=== PATIENT | male | born 1945 | race Caucasian/White ===

== ENCOUNTER 2019-11-11 19:45 | Inpatient (IN) ==
[2019-11-11 20:20] LABS: Basophils # 0.1 10*3/uL (0.0-0.2); Eosinophils % 14.9 % (0.00-10.9); Hematocrit 30.6 VOL% (42.0-52.0); Hemoglobin 9.2 GM/DL (14.0-18.0); Immature Granulocytes % 0.4 %; Immature Granulocytes Absolute 0.06 #; Lymphocytes # 2.4 10*3/uL (1.4-4.0); Lymphocytes % 17.2 % (21.2-54.2); Mean Corpuscular HGB Conc 30.1 GM/DL (32-36); Mean Corpuscular Volume 104.4 FL (87-102); Mean Platelet Volume 10.6 FL (9.6-12.0); Monocytes % 7.3 % (1.7-12.7); Neutrophils % 59.2 % (38.7-73.9); Platelet Count 387 T/CUMM (130-400); Red Blood Count 2.93 MC/CUMM (3.8-5.5); Red Cell Distribution Width 14.8 % (9.3-17.3); White Blood Count 13.7 T/CUMM (4-12)
[2019-11-11 20:43] LABS: Alanine Aminotransferase 27 U/L (16-61); Albumin 3.4 G/DL (3.4-5.0); Alkaline Phosphatase 154 U/L (45-117); Aspartate Amino Transferase 27 U/L (0-37); Bilirubin,Total < 0.39 MG/DL (0.2-1.0); Blood Urea Nitrogen 58 MG/DL (7-18); Calcium 7.9 MG/DL (8.5-10.1); Estimated Glom Filtration Rate 0 ML/MIN; Ferritin 66.5 ng/ml (26-388); Glucose 285 MG/DL (74-106); Osmolality,Calculated 295.1 MOS/KG (273-304); Total Protein 7.6 G/DL (6.4-8.3)
[2019-11-11] MEDS ORDERED: LEVOFLOXACIN INJ 750 MG in PREMIX 1 EACH IV STA (20:45)
[2019-11-11] MEDS ORDERED: VANCOMYCIN INJ 1,000 MG in SODIUM CHLORIDE 0.9% 250 ML IV STA (20:45)
[2019-11-11] MEDS ORDERED: DEXTROSE 50% 25 GM/50 ML VIAL IV STA (20:48)
[2019-11-11] MEDS ORDERED: CALCIUM CHLORIDE 1,000 MG/10 ML SYRINGE IV STA (20:48)
[2019-11-11] MEDS ORDERED: INSULIN REGULAR 100 UNIT/ML IV STA (20:48)
[2019-11-11 20:50] LABS: Eosinophils 15 % (0-10); Lymphocytes 8 % (20-55); Segmented Neutrophils 75 % (50-85); Total Cells Counted 100
[2019-11-11 20:51] LABS: Anisocytosis 1+; Macrocytosis 1+; Microcytosis Slight; Platelet Estimate Normal; Polychromasia Slight
[2019-11-11 20:55] LABS: PT Patient Result 10.3 SECS (9.8-11.9); Partial Thromboplastin Time 31.4 SECS (23.9-33.8)
[2019-11-11] MEDS ORDERED: DEXTROSE 50% 25 GM/50 ML SYRINGE IV ONE (21:14)
[2019-11-11 21:59] LABS: ABG Base Excess -9.3 MMOL/L (-2.5-2.5); ABG HCO3 16.7 MMOL/L (20-26); ABG Oxygen Saturation 79.8 % (95-100); ABG PCO2 61.3 MM HG (35-48); ABG PO2 53.2 MM HG (80-95); ABG TCO2 19.6 MMOL/L (23-27)
[2019-11-11] MEDS: SODIUM BICARB INJ 50 MEQ in DEXTROSE 5% 1,000 ML IV SCH (22:46)
[2019-11-11 23:26] LABS: Apearance,Urine CLEAR (Clear); Bacteria,Urine Few /HPF (Few); Bilirubin,Urine Negative (Negative); Blood, Urine Small mg/dL (Negative); Glucose,Urine (UA) 50 mg/dL (Negative); Ketones,Urine Negative (Negative); Nitrite,Urine Negative (Negative); Protein,Urine 100 MG/DL; RBC,Urine 5 /HPF (0-4); Urine Color Yellow (Yellow); Urine Urobilinogen < 2.0 EU/DL (0.2-1.0)
[2019-11-12] MEDS ORDERED: LACTATED RINGERS 1,000 ML IV ONE (01:04)
[2019-11-12] MEDS ORDERED: fentaNYL INJ 1,250 MCG in SODIUM CHLORIDE 0.9% 225 ML IV PRN (01:04)
[2019-11-12] MEDS ORDERED: DEXTROSE 10% 250 ML BAG IV PRN (01:14)
[2019-11-12] MEDS ORDERED: SODIUM BICARBONATE 50 MEQ/50 ML VIAL IV ONE (01:30)
[2019-11-12] MEDS ORDERED: INSULIN REGULAR 100 UNIT/ML IV ONE (01:30)
[2019-11-12 01:32] LABS: ABG Base Excess -10.3 MMOL/L (-2.5-2.5); ABG HCO3 16.2 MMOL/L (20-26); ABG Oxygen Saturation 99.4 % (95-100); ABG PCO2 42.4 MM HG (35-48); ABG PH 7.213 (7.35-7.45); ABG TCO2 16.2 MMOL/L (23-27); Allen Test Positive; Pt O2 Delivery Device Ventilator
[2019-11-12] MEDS: SODIUM POLYSTYRENE SULFATE 15 GM/60 ML BOTTLE PO SCH ×2 (02:07→11:34)
[2019-11-12 03:26] LABS: Alanine Aminotransferase 20 U/L (16-61); Albumin 2.6 G/DL (3.4-5.0); Alkaline Phosphatase 120 U/L (45-117); Aspartate Amino Transferase 55 U/L (0-37); Bilirubin,Total < 0.39 MG/DL (0.2-1.0); Blood Urea Nitrogen 62 MG/DL (7-18); Calcium 8.3 MG/DL (8.5-10.1); Estimated Glom Filtration Rate 11 ML/MIN; Glucose 370 MG/DL (74-106); Total Protein 5.4 G/DL (6.4-8.3)
[2019-11-12 03:33] LABS: CKMB % 9.9 %
[2019-11-12] MEDS ORDERED: ETOMIDATE 20 MG/10 ML VIAL IV ONE (04:31)
[2019-11-12] MEDS ORDERED: ROCURONIUM 100 MG/10 ML VIAL IV ONE (04:31)
[2019-11-12 04:33] LABS: PT Patient Result 10.9 SECS (9.8-11.9); Partial Thromboplastin Time 29.2 SECS (23.9-33.8)
[2019-11-12 04:46] LABS: Basophils % 0.4 % (0.0-0.8); Eosinophils % 0.3 % (0.00-10.9); Hematocrit 26.1 VOL% (42.0-52.0); Hemoglobin 7.7 GM/DL (14.0-18.0); Immature Granulocytes % 0.4 %; Immature Granulocytes Absolute 0.03 #; Lymphocytes # 0.5 10*3/uL (1.4-4.0); Lymphocytes % 6.6 % (21.2-54.2); Mean Corpuscular HGB Conc 29.5 GM/DL (32-36); Mean Corpuscular Volume 104.4 FL (87-102); Mean Platelet Volume 11.3 FL (9.6-12.0); Monocytes % 8.9 % (1.7-12.7); Neutrophils % 83.4 % (38.7-73.9); Platelet Count 265 T/CUMM (130-400); Red Cell Distribution Width 14.6 % (9.3-17.3); White Blood Count 6.8 T/CUMM (4-12)
[2019-11-12] MEDS: INSULIN LISPRO 100 UNIT/ML SUBCUT SCH ×4 (09:08→18:03)
[2019-11-12] MEDS ORDERED: CALCIUM CHLORIDE 1,000 MG in SODIUM CHLORIDE 0.9% 100 ML IV ONE (11:00)
[2019-11-12] MEDS: LINEZOLID 600 MG TABLET PO SCH ×2 (11:33→20:08)
[2019-11-12] MEDS: PANTOPRAZOLE 40 MG TABLET PO SCH (11:34)
[2019-11-12] MEDS: ASPIRIN EC 81 MG TABLET PO SCH (11:34)
[2019-11-12] MEDS: METOPROLOL TARTRATE 100 MG TABLET PO SCH ×2 (11:34→22:48)
[2019-11-12] MEDS: CLOPIDOGREL 75 MG TABLET PO SCH (11:34)
[2019-11-12] MEDS: SODIUM BICARB INJ 50 MEQ in DEXTROSE 5% 1,000 ML IV SCH (13:08)
[2019-11-12 13:35] LABS: Albumin 2.7 G/DL (3.4-5.0); Bilirubin,Total 0.7 MG/DL (0.2-1.0); Calcium 8.2 MG/DL (8.5-10.1); Total Protein 5.9 G/DL (6.4-8.3)
[2019-11-12] MEDS: HEPARIN DRIP 25,000 UNITS/500 ML PREMIX IV SCH (13:58)
[2019-11-12] MEDS ORDERED: SODIUM POLYSTYRENE SULFATE 15 GM/60 ML BOTTLE PO PRN (14:12)
[2019-11-13 03:01] LABS: Basophils # 0.1 10*3/uL (0.0-0.2); Basophils % 0.7 % (0.0-0.8); Eosinophils # 0.4 10*3/uL (0.0-0.87); Eosinophils % 5.6 % (0.00-10.9); Hematocrit 25.7 VOL% (42.0-52.0); Hemoglobin 8.1 GM/DL (14.0-18.0); Immature Granulocytes % 0.4 %; Immature Granulocytes Absolute 0.03 #; Lymphocytes # 1.3 10*3/uL (1.4-4.0); Lymphocytes % 18.6 % (21.2-54.2); Mean Corpuscular HGB Conc 31.5 GM/DL (32-36); Mean Corpuscular Volume 98.8 FL (87-102); Mean Platelet Volume 10.8 FL (9.6-12.0); Monocytes % 11.1 % (1.7-12.7); Neutrophils % 63.6 % (38.7-73.9); Platelet Count 278 T/CUMM (130-400); Red Cell Distribution Width 14.6 % (9.3-17.3)
[2019-11-13 03:16] LABS: Albumin 2.5 G/DL (3.4-5.0); Bilirubin,Total 0.4 MG/DL (0.2-1.0); Osmolality,Calculated 289.4 MOS/KG (273-304)
[2019-11-13 03:20] LABS: Alanine Aminotransferase 20 U/L (16-61); Albumin 2.7 G/DL (3.4-5.0); Alkaline Phosphatase 115 U/L (45-117); Aspartate Amino Transferase 42 U/L (0-37); Bilirubin,Direct < 0.100 MG/DL (0.0-0.20); Bilirubin,Indirect 0.6 MG/DL (0.0-1.0); Ferritin 103.8 ng/ml (26-388); Total Protein 5.8 G/DL (6.4-8.3); Triglycerides 136 MG/DL (2-150)
[2019-11-13] MEDS: INSULIN LISPRO 100 UNIT/ML SUBCUT SCH ×4 (03:41→18:16)
[2019-11-13 04:04] LABS: ABG Base Excess -4.8 MMOL/L (-2.5-2.5); ABG HCO3 16.4 MMOL/L (20-26); ABG Oxygen Saturation 98.7 % (95-100); ABG PH 7.556 (7.35-7.45); ABG PO2 290.7 MM HG (80-95)
[2019-11-13 05:08] LABS: ABG PCO2 18.9 MM HG (35-48)
[2019-11-13 07:40] LABS: ABG Base Excess -4.7 MMOL/L (-2.5-2.5); ABG HCO3 20.5 MMOL/L (20-26); ABG Oxygen Saturation 99.5 % (95-100); ABG PCO2 22.1 MM HG (35-48); ABG PH 7.503 (7.35-7.45); ABG TCO2 16.1 MMOL/L (23-27)
[2019-11-13] MEDS: METOPROLOL TARTRATE 100 MG TABLET PO SCH ×2 (08:17→21:03)
[2019-11-13] MEDS: LINEZOLID 600 MG TABLET PO SCH ×2 (08:17→21:04)
[2019-11-13] MEDS: CLOPIDOGREL 75 MG TABLET PO SCH (08:17)
[2019-11-13] MEDS: PANTOPRAZOLE 40 MG TABLET PO SCH (08:17)
[2019-11-13] MEDS: ASPIRIN EC 81 MG TABLET PO SCH (08:17)
[2019-11-13] MEDS: LEVOFLOXACIN INJ 500 MG in PREMIX 1 EACH IV SCH (08:17)
[2019-11-13] MEDS ORDERED: SODIUM CHLORIDE 0.9% 1,000 ML IV PRN (09:36)
[2019-11-13] MEDS: HYDROXYCHLOROQUINE 200 MG TABLET PO SCH ×2 (10:19→21:04)
[2019-11-13 15:58] LABS: Albumin 2.3 G/DL (3.4-5.0); Bilirubin,Total 0.4 MG/DL (0.2-1.0); Calcium 7.8 MG/DL (8.5-10.1); Osmolality,Calculated 291.1 MOS/KG (273-304); Total Protein 5.7 G/DL (6.4-8.3)
[2019-11-13 20:38] LABS: Hematocrit 33.5 VOL% (42.0-52.0); Hemoglobin 10.8 GM/DL (14.0-18.0)
[2019-11-13] MEDS: HEPARIN DRIP 25,000 UNITS/500 ML PREMIX IV SCH (20:45)
[2019-11-13] MEDS: ROSUVASTATIN 20 MG TABLET PO SCH (21:03)
[2019-11-14] MEDS: INSULIN LISPRO 100 UNIT/ML SUBCUT SCH ×4 (00:45→18:10)
[2019-11-14 04:03] LABS: ABG Base Excess -4.3 MMOL/L (-2.5-2.5); ABG HCO3 20.9 MMOL/L (20-26); ABG PCO2 31.7 MM HG (35-48); ABG PH 7.399 (7.35-7.45); ABG TCO2 17.6 MMOL/L (23-27); Allen Test Positive; Pt O2 Delivery Device Ventilator
[2019-11-14 04:28] LABS: Basophils % 0.6 % (0.0-0.8); Eosinophils # 0.9 10*3/uL (0.0-0.87); Eosinophils % 13.5 % (0.00-10.9); Hematocrit 31.6 VOL% (42.0-52.0); Hemoglobin 10.1 GM/DL (14.0-18.0); Immature Granulocytes % 0.3 %; Immature Granulocytes Absolute 0.02 #; Lymphocytes # 0.8 10*3/uL (1.4-4.0); Lymphocytes % 12.2 % (21.2-54.2); Mean Corpuscular Volume 95.8 FL (87-102); Mean Platelet Volume 10.7 FL (9.6-12.0); Monocytes % 8.3 % (1.7-12.7); Neutrophils % 65.1 % (38.7-73.9); Platelet Count 250 T/CUMM (130-400); Red Cell Distribution Width 15.6 % (9.3-17.3); White Blood Count 6.7 T/CUMM (4-12)
[2019-11-14 05:10] LABS: PT Patient Result 10.4 SECS (9.8-11.9)
[2019-11-14 05:15] LABS: Albumin 2.4 G/DL (3.4-5.0); Bilirubin,Direct 0.19 MG/DL (0.0-0.20); Bilirubin,Indirect 0.3 MG/DL (0.0-1.0); Bilirubin,Total 0.5 MG/DL (0.2-1.0); Ferritin 189.7 ng/ml (26-388); Total Protein 5.2 G/DL (6.4-8.3)
[2019-11-14 05:20] LABS: Partial Thromboplastin Time 53.5 SECS (23.9-33.8)
[2019-11-14 05:22] LABS: Eosinophils 13 % (0-10); Lymphocytes 7 % (20-55); Platelet Estimate Normal; Polychromasia Few; Segmented Neutrophils 78 % (50-85); Total Cells Counted 100
[2019-11-14 07:03] LABS: Albumin 2.3 G/DL (3.4-5.0); Calcium 7.9 MG/DL (8.5-10.1)
[2019-11-14 07:04] LABS: Osmolality,Calculated 293.8 MOS/KG (273-304)
[2019-11-14 07:09] LABS: Bilirubin,Total 0.6 MG/DL (0.2-1.0); Total Protein 5.9 G/DL (6.4-8.3)
[2019-11-14] MEDS: ASPIRIN EC 81 MG TABLET PO SCH (08:49)
[2019-11-14] MEDS: METOPROLOL TARTRATE 100 MG TABLET PO SCH ×2 (08:49→21:00)
[2019-11-14] MEDS: CLOPIDOGREL 75 MG TABLET PO SCH (08:50)
[2019-11-14] MEDS: LINEZOLID 600 MG TABLET PO SCH ×2 (08:50→21:00)
[2019-11-14] MEDS: HYDROXYCHLOROQUINE 200 MG TABLET PO SCH ×2 (08:50→21:00)
[2019-11-14] MEDS: OMEPRAZOLE ODT 20 MG TABLET NG SCH (08:53)
[2019-11-14 10:46] LABS: CKMB % 1.2 %
[2019-11-14 10:49] LABS: Troponin I 6.21 NG/ML (0.00-0.045)
[2019-11-14] MEDS: amLODIPine 5 MG TABLET PO SCH (12:31)
[2019-11-14] MEDS: HEPARIN DRIP 25,000 UNITS/500 ML PREMIX IV SCH (18:10)
[2019-11-14] MEDS: ACETAMINOPHEN 325 MG TABLET PO PRN (21:00)
[2019-11-14] MEDS: ROSUVASTATIN 20 MG TABLET PO SCH (21:00)
[2019-11-15] MEDS: INSULIN LISPRO 100 UNIT/ML SUBCUT SCH ×5 (00:56→23:45)
[2019-11-15 03:26] LABS: Basophils % 0.4 % (0.0-0.8); Eosinophils # 0.3 10*3/uL (0.0-0.87); Eosinophils % 5.7 % (0.00-10.9); Hematocrit 29.5 VOL% (42.0-52.0); Hemoglobin 9.5 GM/DL (14.0-18.0); Immature Granulocytes % 0.4 %; Immature Granulocytes Absolute 0.02 #; Lymphocytes # 0.6 10*3/uL (1.4-4.0); Lymphocytes % 12.2 % (21.2-54.2); Mean Corpuscular HGB Conc 32.2 GM/DL (32-36); Mean Corpuscular Volume 95.8 FL (87-102); Mean Platelet Volume 10.7 FL (9.6-12.0); Monocytes % 7.2 % (1.7-12.7); Neutrophils % 74.1 % (38.7-73.9); Platelet Count 212 T/CUMM (130-400); Red Blood Count 3.08 MC/CUMM (3.8-5.5); Red Cell Distribution Width 15.4 % (9.3-17.3); White Blood Count 5.3 T/CUMM (4-12)
[2019-11-15 03:37] LABS: Albumin 2.3 G/DL (3.4-5.0); Bilirubin,Total 0.6 MG/DL (0.2-1.0); Calcium 7.6 MG/DL (8.5-10.1); Osmolality,Calculated 301.8 MOS/KG (273-304); Total Protein 5.8 G/DL (6.4-8.3)
[2019-11-15 03:46] LABS: PT Patient Result 10.3 SECS (9.8-11.9)
[2019-11-15 03:52] LABS: Partial Thromboplastin Time 51.9 SECS (23.9-33.8)
[2019-11-15 04:26] LABS: ABG Base Excess -6.9 MMOL/L (-2.5-2.5); ABG HCO3 17.4 MMOL/L (20-26); ABG Oxygen Saturation 96.7 % (95-100); ABG PCO2 30.8 MM HG (35-48); ABG PO2 94.4 MM HG (80-95); ABG TCO2 18.4 MMOL/L (23-27); Allen Test Positive; Pt O2 Delivery Device Ventilator
[2019-11-15 04:45] LABS: Prealbumin 9.6 MG/DL (20-40)
[2019-11-15] MEDS: LINEZOLID 600 MG TABLET PO SCH ×2 (09:35→20:36)
[2019-11-15] MEDS: LEVOFLOXACIN INJ 500 MG in PREMIX 1 EACH IV SCH (09:35)
[2019-11-15] MEDS: amLODIPine 5 MG TABLET PO SCH (09:35)
[2019-11-15] MEDS: CLOPIDOGREL 75 MG TABLET PO SCH (09:35)
[2019-11-15] MEDS: METOPROLOL TARTRATE 100 MG TABLET PO SCH ×2 (09:35→20:36)
[2019-11-15] MEDS: OMEPRAZOLE ODT 20 MG TABLET NG SCH (09:35)
[2019-11-15] MEDS: ASPIRIN EC 81 MG TABLET PO SCH (09:35)
[2019-11-15] MEDS: HYDROXYCHLOROQUINE 200 MG TABLET PO SCH ×2 (09:36→20:36)
[2019-11-15] MEDS: HEPARIN DRIP 25,000 UNITS/500 ML PREMIX IV SCH (11:24)
[2019-11-15] MEDS: ROSUVASTATIN 20 MG TABLET PO SCH (20:36)
[2019-11-16 04:13] LABS: ABG Base Excess -7.1 MMOL/L (-2.5-2.5); ABG HCO3 18.7 MMOL/L (20-26); ABG PCO2 32.1 MM HG (35-48); ABG PH 7.347 (7.35-7.45); ABG TCO2 15.7 MMOL/L (23-27); Allen Test Positive; Pt O2 Delivery Device Ventilator
[2019-11-16] MEDS: INSULIN LISPRO 100 UNIT/ML SUBCUT SCH ×3 (06:50→18:00)
[2019-11-16] MEDS ORDERED: AZITHROMYCIN 250 MG TABLET PER TUBE ONE (09:00)
[2019-11-16] MEDS: LINEZOLID 600 MG TABLET PO SCH ×2 (09:15→21:05)
[2019-11-16] MEDS: ZINC SULFATE 220 MG CAPSULE PER TUBE SCH (09:15)
[2019-11-16] MEDS: ASPIRIN CHEW 81 MG TABLET PO SCH (09:15)
[2019-11-16] MEDS: METOPROLOL TARTRATE 100 MG TABLET PO SCH ×2 (09:15→21:05)
[2019-11-16] MEDS: ACETAMINOPHEN 325 MG TABLET PO PRN (09:15)
[2019-11-16] MEDS: HYDROXYCHLOROQUINE 200 MG TABLET PO SCH ×2 (09:15→21:05)
[2019-11-16] MEDS: OMEPRAZOLE ODT 20 MG TABLET NG SCH (09:15)
[2019-11-16] MEDS: amLODIPine 5 MG TABLET PO SCH (09:15)
[2019-11-16] MEDS: CLOPIDOGREL 75 MG TABLET PO SCH (09:15)
[2019-11-16 10:19] LABS: Basophils % 0.6 % (0.0-0.8); Eosinophils # 0.2 10*3/uL (0.0-0.87); Eosinophils % 5.9 % (0.00-10.9); Hemoglobin 9.1 GM/DL (14.0-18.0); Immature Granulocytes % 0.3 %; Immature Granulocytes Absolute 0.01 #; Lymphocytes # 0.7 10*3/uL (1.4-4.0); Lymphocytes % 21.9 % (21.2-54.2); Mean Corpuscular HGB Conc 31.4 GM/DL (32-36); Mean Corpuscular Volume 99.7 FL (87-102); Mean Platelet Volume 10.8 FL (9.6-12.0); Monocytes % 6.8 % (1.7-12.7); Neutrophils % 64.5 % (38.7-73.9); Platelet Count 196 T/CUMM (130-400); Red Blood Count 2.91 MC/CUMM (3.8-5.5); Red Cell Distribution Width 14.8 % (9.3-17.3); White Blood Count 3.2 T/CUMM (4-12)
[2019-11-16 10:32] LABS: Calcium 7.2 MG/DL (8.5-10.1); Osmolality,Calculated 303.7 MOS/KG (273-304)
[2019-11-16] MEDS: HEPARIN DRIP 25,000 UNITS/500 ML PREMIX IV SCH (10:57)
[2019-11-16] MEDS: ROSUVASTATIN 20 MG TABLET PO SCH (21:05)
[2019-11-17] MEDS: ACETAMINOPHEN 325 MG TABLET PO PRN ×3 (00:10→22:30)
[2019-11-17] MEDS: INSULIN LISPRO 100 UNIT/ML SUBCUT SCH ×4 (00:25→18:08)
[2019-11-17 04:31] LABS: ABG Base Excess -7.4 MMOL/L (-2.5-2.5); ABG HCO3 18.4 MMOL/L (20-26); ABG PH 7.344 (7.35-7.45); Allen Test Positive; Pt O2 Delivery Device Ventilator
[2019-11-17 04:49] LABS: Basophils % 0.6 % (0.0-0.8); Eosinophils # 0.1 10*3/uL (0.0-0.87); Hematocrit 29.2 VOL% (42.0-52.0); Hemoglobin 9.2 GM/DL (14.0-18.0); Immature Granulocytes % 0.6 %; Immature Granulocytes Absolute 0.02 #; Lymphocytes # 0.8 10*3/uL (1.4-4.0); Lymphocytes % 22.4 % (21.2-54.2); Mean Corpuscular HGB Conc 31.5 GM/DL (32-36); Mean Corpuscular Volume 98.6 FL (87-102); Mean Platelet Volume 10.5 FL (9.6-12.0); Neutrophils % 68.4 % (38.7-73.9); Platelet Count 187 T/CUMM (130-400); Red Blood Count 2.96 MC/CUMM (3.8-5.5); Red Cell Distribution Width 14.5 % (9.3-17.3); White Blood Count 3.6 T/CUMM (4-12)
[2019-11-17 05:39] LABS: Alanine Aminotransferase 42 U/L (16-61); Albumin 2.1 G/DL (3.4-5.0); Alkaline Phosphatase 93 U/L (45-117); Aspartate Amino Transferase 97 U/L (0-37); Bilirubin,Total < 0.39 MG/DL (0.2-1.0); Blood Urea Nitrogen 87 MG/DL (7-18); Calcium 7.2 MG/DL (8.5-10.1); Calcium 7.6 MG/DL (8.5-10.1); Estimated Glom Filtration Rate 9 ML/MIN; Glucose 126 MG/DL (74-106); Osmolality,Calculated 301.8 MOS/KG (273-304); Osmolality,Calculated 306.4 MOS/KG (273-304); Prealbumin 8.8 MG/DL (20-40); Total Protein 5.9 G/DL (6.4-8.3)
[2019-11-17 08:58] LABS: Free T4 (Free Thyroxine) 0.77 NG/DL (0.76-1.46); Thyroid Stimulating Hormone 2.89 uIU/ml (0.358-3.74)
[2019-11-17] MEDS: HEPARIN DRIP 25,000 UNITS/500 ML PREMIX IV SCH (10:21)
[2019-11-17] MEDS: METOPROLOL TARTRATE 100 MG TABLET PO SCH ×2 (11:01→22:30)
[2019-11-17] MEDS: ASPIRIN CHEW 81 MG TABLET PO SCH (11:01)
[2019-11-17] MEDS: AZITHROMYCIN 250 MG TABLET PER TUBE SCH (11:02)
[2019-11-17] MEDS: CLOPIDOGREL 75 MG TABLET PO SCH (11:02)
[2019-11-17] MEDS: HYDROXYCHLOROQUINE 200 MG TABLET PO SCH ×2 (11:02→22:30)
[2019-11-17] MEDS: LINEZOLID 600 MG TABLET PO SCH ×2 (11:02→22:30)
[2019-11-17] MEDS: OMEPRAZOLE ODT 20 MG TABLET NG SCH (11:02)
[2019-11-17] MEDS: amLODIPine 5 MG TABLET PO SCH (11:02)
[2019-11-17] MEDS: ROSUVASTATIN 20 MG TABLET PO SCH (22:30)
[2019-11-18] MEDS: INSULIN LISPRO 100 UNIT/ML SUBCUT SCH ×4 (02:14→17:43)
[2019-11-18 03:37] LABS: ABG Base Excess -8.2 MMOL/L (-2.5-2.5); ABG HCO3 15.6 MMOL/L (20-26); ABG Oxygen Saturation 95.6 % (95-100); ABG PCO2 27.1 MM HG (35-48); ABG PH 7.378 (7.35-7.45); ABG PO2 83.2 MM HG (80-95); ABG TCO2 16.4 MMOL/L (23-27); Allen Test Positive; Pt O2 Delivery Device Ventilator
[2019-11-18 05:42] LABS: Basophils % 0.6 % (0.0-0.8); Eosinophils # 0.2 10*3/uL (0.0-0.87); Eosinophils % 4.7 % (0.00-10.9); Hematocrit 28.9 VOL% (42.0-52.0); Hemoglobin 9.1 GM/DL (14.0-18.0); Immature Granulocytes % 0.8 %; Immature Granulocytes Absolute 0.03 #; Lymphocytes # 0.8 10*3/uL (1.4-4.0); Mean Corpuscular HGB Conc 31.5 GM/DL (32-36); Mean Corpuscular Volume 97.6 FL (87-102); Monocytes % 3.3 % (1.7-12.7); Neutrophils % 67.6 % (38.7-73.9); Platelet Count 156 T/CUMM (130-400); Red Blood Count 2.96 MC/CUMM (3.8-5.5); White Blood Count 3.6 T/CUMM (4-12)
[2019-11-18 05:58] LABS: Alanine Aminotransferase 57 U/L (16-61); Alkaline Phosphatase 86 U/L (45-117); Aspartate Amino Transferase 119 U/L (0-37); Bilirubin,Total < 0.39 MG/DL (0.2-1.0); Blood Urea Nitrogen 99 MG/DL (7-18); Calcium 7.3 MG/DL (8.5-10.1); Estimated Glom Filtration Rate 8 ML/MIN; Glucose 221 MG/DL (74-106); Osmolality,Calculated 312.7 MOS/KG (273-304); Total Protein 5.9 G/DL (6.4-8.3)
[2019-11-18] MEDS: ACETAMINOPHEN 325 MG TABLET PO PRN ×2 (06:15→09:15)
[2019-11-18 06:22] LABS: Band Neutrophils 1 % (0-10); Eosinophils 8 % (0-10); Hypochromasia Slight; Lymphocytes 22 % (20-55); Segmented Neutrophils 65 % (50-85); Total Cells Counted 100
[2019-11-18 06:24] LABS: Macrocytosis Slight; Platelet Estimate Adequate
[2019-11-18] MEDS: LINEZOLID 600 MG TABLET PO SCH (08:48)
[2019-11-18] MEDS: AZITHROMYCIN 250 MG TABLET PER TUBE SCH (08:48)
[2019-11-18] MEDS: ASPIRIN CHEW 81 MG TABLET PO SCH (08:48)
[2019-11-18] MEDS: ZINC SULFATE 220 MG CAPSULE PER TUBE SCH (08:48)
[2019-11-18] MEDS: CLOPIDOGREL 75 MG TABLET PO SCH (08:49)
[2019-11-18] MEDS: OMEPRAZOLE ODT 20 MG TABLET NG SCH (08:49)
[2019-11-18] MEDS: ENOXAPARIN 30 MG/0.3 ML SYRINGE SUBCUT SCH (08:49)
[2019-11-18] MEDS: METOPROLOL TARTRATE 100 MG TABLET PO SCH ×2 (09:02→23:59)
[2019-11-18] MEDS: amLODIPine 5 MG TABLET PO SCH (10:13)
[2019-11-18] MEDS: CLINDAMYCIN INJ 600 MG in PREMIX 1 EACH IV SCH ×2 (14:06→23:58)
[2019-11-18] MEDS: ROSUVASTATIN 20 MG TABLET PO SCH (23:59)
[2019-11-19] MEDS: INSULIN LISPRO 100 UNIT/ML SUBCUT SCH ×4 (00:03→17:02)
[2019-11-19] MEDS: ACETAMINOPHEN 325 MG TABLET PO PRN ×2 (00:08→21:36)
[2019-11-19 05:43] LABS: Basophils % 0.3 % (0.0-0.8); Eosinophils # 0.3 10*3/uL (0.0-0.87); Eosinophils % 7.5 % (0.00-10.9); Hematocrit 25.7 VOL% (42.0-52.0); Hemoglobin 8.2 GM/DL (14.0-18.0); Immature Granulocytes % 1.6 %; Immature Granulocytes Absolute 0.06 #; Lymphocytes # 0.8 10*3/uL (1.4-4.0); Lymphocytes % 20.4 % (21.2-54.2); Mean Corpuscular HGB Conc 31.9 GM/DL (32-36); Mean Platelet Volume 10.9 FL (9.6-12.0); Neutrophils % 66.2 % (38.7-73.9); Platelet Count 119 T/CUMM (130-400); Red Blood Count 2.65 MC/CUMM (3.8-5.5); Red Cell Distribution Width 14.1 % (9.3-17.3); White Blood Count 3.7 T/CUMM (4-12)
[2019-11-19 06:06] LABS: Alanine Aminotransferase 67 U/L (16-61); Albumin 1.8 G/DL (3.4-5.0); Alkaline Phosphatase 78 U/L (45-117); Aspartate Amino Transferase 160 U/L (0-37); Bilirubin,Total < 0.39 MG/DL (0.2-1.0); Blood Urea Nitrogen 116 MG/DL (7-18); Calcium 7.3 MG/DL (8.5-10.1); Estimated Glom Filtration Rate 7 ML/MIN; Glucose 164 MG/DL (74-106); Osmolality,Calculated 313.8 MOS/KG (273-304); Total Protein 5.7 G/DL (6.4-8.3)
[2019-11-19] MEDS: CLINDAMYCIN INJ 600 MG in PREMIX 1 EACH IV SCH ×4 (06:57→21:41)
[2019-11-19 07:13] LABS: Band Neutrophils 10 % (0-10); Eosinophils 8 % (0-10); Lymphocytes 18 % (20-55); Segmented Neutrophils 60 % (50-85); Total Cells Counted 100
[2019-11-19 07:14] LABS: Anisocytosis 1+; Nucleated Red Blood Cells 1 (0-5); Platelet Estimate Adequate; Smudge Cells Few
[2019-11-19 07:15] LABS: Macrocytosis Slight
[2019-11-19] MEDS: AZITHROMYCIN 250 MG TABLET PER TUBE SCH (08:47)
[2019-11-19] MEDS: METOPROLOL TARTRATE 100 MG TABLET PO SCH ×2 (08:47→21:36)
[2019-11-19] MEDS: CLOPIDOGREL 75 MG TABLET PO SCH (08:47)
[2019-11-19] MEDS: amLODIPine 5 MG TABLET PO SCH (08:47)
[2019-11-19] MEDS: OMEPRAZOLE ODT 20 MG TABLET NG SCH (08:47)
[2019-11-19] MEDS: ASPIRIN CHEW 81 MG TABLET PO SCH (08:47)
[2019-11-19] MEDS: ENOXAPARIN 30 MG/0.3 ML SYRINGE SUBCUT SCH (08:48)
[2019-11-19] MEDS: ROSUVASTATIN 20 MG TABLET PO SCH (21:36)
[2019-11-20] MEDS: INSULIN LISPRO 100 UNIT/ML SUBCUT SCH ×4 (00:56→17:28)
[2019-11-20 04:34] LABS: Basophils % 0.4 % (0.0-0.8); Eosinophils # 0.3 10*3/uL (0.0-0.87); Eosinophils % 6.5 % (0.00-10.9); Hematocrit 26.6 VOL% (42.0-52.0); Hemoglobin 8.2 GM/DL (14.0-18.0); Immature Granulocytes % 1.5 %; Immature Granulocytes Absolute 0.07 #; Lymphocytes # 0.9 10*3/uL (1.4-4.0); Lymphocytes % 19.9 % (21.2-54.2); Mean Corpuscular HGB Conc 30.8 GM/DL (32-36); Mean Corpuscular Volume 98.9 FL (87-102); Mean Platelet Volume 11.7 FL (9.6-12.0); Monocytes % 3.5 % (1.7-12.7); Neutrophils % 68.2 % (38.7-73.9); Platelet Count 108 T/CUMM (130-400); Red Blood Count 2.69 MC/CUMM (3.8-5.5); Red Cell Distribution Width 13.9 % (9.3-17.3); White Blood Count 4.6 T/CUMM (4-12)
[2019-11-20 05:14] LABS: Albumin 1.8 G/DL (3.4-5.0); Bilirubin,Total 0.6 MG/DL (0.2-1.0); Calcium 7.3 MG/DL (8.5-10.1); Osmolality,Calculated 321.8 MOS/KG (273-304); Total Protein 6.1 G/DL (6.4-8.3)
[2019-11-20] MEDS: CLINDAMYCIN INJ 600 MG in PREMIX 1 EACH IV SCH ×3 (06:00→22:00)
[2019-11-20 07:57] LABS: Anisocytosis 1+; Band Neutrophils 14 % (0-10); Eosinophils 10 % (0-10); Lymphocytes 13 % (20-55); Macrocytosis 1+; Nucleated Red Blood Cells 3 (0-5); Platelet Estimate Adequate; Poikilocytosis Slight; Segmented Neutrophils 61 % (50-85); Total Cells Counted 100
[2019-11-20] MEDS: OMEPRAZOLE ODT 20 MG TABLET NG SCH (08:37)
[2019-11-20] MEDS: ENOXAPARIN 30 MG/0.3 ML SYRINGE SUBCUT SCH (08:37)
[2019-11-20] MEDS: AZITHROMYCIN 250 MG TABLET PER TUBE SCH (08:37)
[2019-11-20] MEDS: ZINC SULFATE 220 MG CAPSULE PER TUBE SCH (08:38)
[2019-11-20] MEDS: amLODIPine 5 MG TABLET PO SCH (08:38)
[2019-11-20] MEDS: ASPIRIN CHEW 81 MG TABLET PO SCH (08:38)
[2019-11-20] MEDS: ACETAMINOPHEN 325 MG TABLET PO PRN (08:38)
[2019-11-20] MEDS: CLOPIDOGREL 75 MG TABLET PO SCH (08:38)
[2019-11-20] MEDS: METOPROLOL TARTRATE 100 MG TABLET PO SCH ×2 (08:39→20:13)
[2019-11-20] MEDS ORDERED: MORPHINE 4 MG/1 ML VIAL IV PRN (14:39)
[2019-11-20] MEDS: ROSUVASTATIN 20 MG TABLET PO SCH (20:13)
[2019-11-21] MEDS: INSULIN LISPRO 100 UNIT/ML SUBCUT SCH ×4 (01:15→18:11)
[2019-11-21] MEDS: ACETAMINOPHEN 325 MG TABLET PO PRN (01:19)
[2019-11-21 05:04] LABS: Basophils % 0.5 % (0.0-0.8); Eosinophils # 0.1 10*3/uL (0.0-0.87); Eosinophils % 3.1 % (0.00-10.9); Hematocrit 23.3 VOL% (42.0-52.0); Hemoglobin 7.2 GM/DL (14.0-18.0); Immature Granulocytes % 1.7 %; Immature Granulocytes Absolute 0.07 #; Lymphocytes # 0.6 10*3/uL (1.4-4.0); Lymphocytes % 14.5 % (21.2-54.2); Mean Corpuscular HGB Conc 30.9 GM/DL (32-36); Mean Corpuscular Volume 97.9 FL (87-102); Mean Platelet Volume 12.1 FL (9.6-12.0); Monocytes % 5.1 % (1.7-12.7); Neutrophils % 75.1 % (38.7-73.9); Platelet Count 91 T/CUMM (130-400); Red Blood Count 2.38 MC/CUMM (3.8-5.5); Red Cell Distribution Width 13.8 % (9.3-17.3); White Blood Count 4.1 T/CUMM (4-12)
[2019-11-21 05:21] LABS: Band Neutrophils 2 % (0-10); Eosinophils 2 % (0-10); Lymphocytes 13 % (20-55); Segmented Neutrophils 77 % (50-85); Total Cells Counted 100
[2019-11-21 05:22] LABS: Hypochromasia 1+; Macrocytosis Slight; Ovalocytes Slight; Platelet Estimate Decreased
[2019-11-21 05:54] LABS: Albumin 1.8 G/DL (3.4-5.0); Bilirubin,Total 0.5 MG/DL (0.2-1.0); Calcium 7.1 MG/DL (8.5-10.1); Osmolality,Calculated 328.5 MOS/KG (273-304); Total Protein 4.9 G/DL (6.4-8.3)
[2019-11-21] MEDS: CLINDAMYCIN INJ 600 MG in PREMIX 1 EACH IV SCH ×3 (06:41→21:45)
[2019-11-21] MEDS: ENOXAPARIN 30 MG/0.3 ML SYRINGE SUBCUT SCH (09:23)
[2019-11-21] MEDS: OMEPRAZOLE ODT 20 MG TABLET NG SCH (09:23)
[2019-11-21] MEDS: ASPIRIN CHEW 81 MG TABLET PO SCH (09:23)
[2019-11-21] MEDS: CLOPIDOGREL 75 MG TABLET PO SCH (09:23)
[2019-11-21] MEDS: METOPROLOL TARTRATE 100 MG TABLET PO SCH ×2 (09:23→20:25)
[2019-11-21] MEDS: amLODIPine 5 MG TABLET PO SCH (09:23)
[2019-11-21] MEDS ORDERED: SODIUM CHLORIDE 0.9% 1,000 ML IV PRN (12:13)
[2019-11-21 18:03] LABS: Hepatitis B Core IgM Quant < 0.05 Index; Hepatitis B Surface Ag Quant < 0.10 Index; Hepatitis B Surface Ag Result Negative (Negative); Hepatitis C Virus Ab Result Negative (Negative)
[2019-11-21] MEDS: ROSUVASTATIN 20 MG TABLET PO SCH (20:25)
[2019-11-22] MEDS: INSULIN LISPRO 100 UNIT/ML SUBCUT SCH ×4 (02:06→17:27)
[2019-11-22 05:02] LABS: Allen Test Positive; Pt O2 Delivery Device Ventilator
[2019-11-22 05:04] LABS: ABG Base Excess -6.5 MMOL/L (-2.5-2.5); ABG HCO3 19.1 MMOL/L (20-26); ABG Oxygen Saturation 99.3 % (95-100); ABG PCO2 26.1 MM HG (35-48); ABG PH 7.414 (7.35-7.45); ABG TCO2 14.9 MMOL/L (23-27)
[2019-11-22 06:22] LABS: Basophils % 0.3 % (0.0-0.8); Eosinophils # 0.1 10*3/uL (0.0-0.87); Eosinophils % 1.1 % (0.00-10.9); Hematocrit 32.7 VOL% (42.0-52.0); Immature Granulocytes % 1.6 %; Lymphocytes # 0.7 10*3/uL (1.4-4.0); Lymphocytes % 11.1 % (21.2-54.2); Mean Corpuscular HGB Conc 33.6 GM/DL (32-36); Mean Corpuscular Volume 89.8 FL (87-102); Mean Platelet Volume 12.5 FL (9.6-12.0); Monocytes % 7.2 % (1.7-12.7); Neutrophils % 78.7 % (38.7-73.9); Platelet Count 86 T/CUMM (130-400); Red Blood Count 3.64 MC/CUMM (3.8-5.5); Red Cell Distribution Width 15.1 % (9.3-17.3); White Blood Count 6.2 T/CUMM (4-12)
[2019-11-22] MEDS: CLINDAMYCIN INJ 600 MG in PREMIX 1 EACH IV SCH ×3 (06:24→22:29)
[2019-11-22 06:41] LABS: Hypochromasia Slight; Macrocytosis Slight; Platelet Estimate Decreased
[2019-11-22] MEDS ORDERED: HEPARIN 10,000 UNIT/10 ML VIAL IV PRN (06:48)
[2019-11-22] MEDS: OMEPRAZOLE ODT 20 MG TABLET NG SCH (09:55)
[2019-11-22] MEDS: ENOXAPARIN 30 MG/0.3 ML SYRINGE SUBCUT SCH (09:55)
[2019-11-22] MEDS: METOPROLOL TARTRATE 100 MG TABLET PO SCH ×2 (09:56→21:55)
[2019-11-22] MEDS: ASPIRIN CHEW 81 MG TABLET PO SCH (09:56)
[2019-11-22] MEDS: amLODIPine 5 MG TABLET PO SCH (09:56)
[2019-11-22] MEDS: ROSUVASTATIN 20 MG TABLET PO SCH (21:55)
[2019-11-23] MEDS: INSULIN LISPRO 100 UNIT/ML SUBCUT SCH ×4 (01:13→17:19)
[2019-11-23 03:00] VITALS: BP 142/70
[2019-11-23 04:40] LABS: ABG Base Excess -8.6 MMOL/L (-2.5-2.5); ABG HCO3 17.5 MMOL/L (20-26); ABG Oxygen Saturation 89.2 % (95-100); ABG PCO2 29.3 MM HG (35-48); ABG PH 7.338 (7.35-7.45); ABG PO2 61.7 MM HG (80-95); Allen Test Positive; Pt O2 Delivery Device Ventilator
[2019-11-23] MEDS: CLINDAMYCIN INJ 600 MG in PREMIX 1 EACH IV SCH ×3 (06:43→21:59)
[2019-11-23] MEDS: ASPIRIN CHEW 81 MG TABLET PO SCH (08:39)
[2019-11-23] MEDS: ENOXAPARIN 30 MG/0.3 ML SYRINGE SUBCUT SCH (08:39)
[2019-11-23] MEDS: amLODIPine 5 MG TABLET PO SCH (08:39)
[2019-11-23] MEDS: OMEPRAZOLE ODT 20 MG TABLET NG SCH (08:39)
[2019-11-23] MEDS: METOPROLOL TARTRATE 100 MG TABLET PO SCH ×2 (08:39→20:15)
[2019-11-23 13:46] LABS: Basophils # 0.1 10*3/uL (0.0-0.2); Basophils % 0.4 % (0.0-0.8); Eosinophils # 0.2 10*3/uL (0.0-0.87); Eosinophils % 1.8 % (0.00-10.9); Hematocrit 37.7 VOL% (42.0-52.0); Hemoglobin 11.9 GM/DL (14.0-18.0); Immature Granulocytes % 1.4 %; Immature Granulocytes Absolute 0.16 #; Lymphocytes # 0.9 10*3/uL (1.4-4.0); Lymphocytes % 7.5 % (21.2-54.2); Mean Corpuscular HGB Conc 31.6 GM/DL (32-36); Mean Corpuscular Volume 94.5 FL (87-102); Mean Platelet Volume 13.6 FL (9.6-12.0); Monocytes % 3.3 % (1.7-12.7); NRBC # 0.02 10*3/uL; Neutrophils % 85.6 % (38.7-73.9); Platelet Count 127 T/CUMM (130-400); Red Blood Count 3.99 MC/CUMM (3.8-5.5); Red Cell Distribution Width 14.9 % (9.3-17.3); White Blood Count 11.5 T/CUMM (4-12)
[2019-11-23 14:04] LABS: Calcium 8.4 MG/DL (8.5-10.1)
[2019-11-23 14:16] LABS: Eosinophils 2 % (0-10); Lymphocytes 9 % (20-55); Macrocytosis Slight; Segmented Neutrophils 86 % (50-85); Total Cells Counted 100
[2019-11-23 14:18] LABS: Anisocytosis 2+; Platelet Estimate Normal
[2019-11-23] MEDS ORDERED: NOREPINEPHRINE 4 MG in SODIUM CHLORIDE 0.9% 246 ML IV PRN (15:44)
[2019-11-23] MEDS: NOREPINEPHRINE 8 MG in SODIUM CHLORIDE 0.9% 242 ML IV PRN (16:33)
[2019-11-23] MEDS: methylPREDNISolone SOD SUC 40 MG/1 ML VIAL IV SCH (16:51)
[2019-11-23] MEDS: ROSUVASTATIN 20 MG TABLET PO SCH (20:15)
[2019-11-24] MEDS: methylPREDNISolone SOD SUC 40 MG/1 ML VIAL IV SCH ×4 (00:46→23:45)
[2019-11-24] MEDS: INSULIN LISPRO 100 UNIT/ML SUBCUT SCH ×5 (00:46→23:45)
[2019-11-24] MEDS: NOREPINEPHRINE 8 MG in SODIUM CHLORIDE 0.9% 242 ML IV PRN (04:04)
[2019-11-24] MEDS: CLINDAMYCIN INJ 600 MG in PREMIX 1 EACH IV SCH ×3 (06:00→22:21)
[2019-11-24 06:41] LABS: Basophils # 0.1 10*3/uL (0.0-0.2); Basophils % 0.4 % (0.0-0.8); Hemoglobin 11.3 GM/DL (14.0-18.0); Immature Granulocytes % 1.8 %; Immature Granulocytes Absolute 0.21 #; Lymphocytes # 0.6 10*3/uL (1.4-4.0); Lymphocytes % 5.3 % (21.2-54.2); Mean Corpuscular HGB Conc 31.4 GM/DL (32-36); Mean Platelet Volume 14.2 FL (9.6-12.0); Monocytes % 4.8 % (1.7-12.7); Neutrophils % 87.7 % (38.7-73.9); Platelet Count 186 T/CUMM (130-400); Red Blood Count 3.75 MC/CUMM (3.8-5.5); Red Cell Distribution Width 14.8 % (9.3-17.3); White Blood Count 11.6 T/CUMM (4-12)
[2019-11-24 08:13] LABS: Calcium 7.6 MG/DL (8.5-10.1)
[2019-11-24] MEDS: OMEPRAZOLE ODT 20 MG TABLET NG SCH (08:16)
[2019-11-24] MEDS: ASPIRIN CHEW 81 MG TABLET PO SCH (08:16)
[2019-11-24] MEDS: ENOXAPARIN 30 MG/0.3 ML SYRINGE SUBCUT SCH (08:16)
[2019-11-24] MEDS: ROSUVASTATIN 20 MG TABLET PO SCH (21:23)
[2019-11-25 06:02] LABS: Basophils % 0.3 % (0.0-0.8); Hematocrit 37.2 VOL% (42.0-52.0); Hemoglobin 11.6 GM/DL (14.0-18.0); Immature Granulocytes % 2.4 %; Immature Granulocytes Absolute 0.38 #; Lymphocytes # 0.6 10*3/uL (1.4-4.0); Mean Corpuscular HGB Conc 31.2 GM/DL (32-36); Mean Corpuscular Volume 95.9 FL (87-102); Mean Platelet Volume 13.5 FL (9.6-12.0); Monocytes % 6.7 % (1.7-12.7); NRBC # 0.02 10*3/uL; Neutrophils % 86.6 % (38.7-73.9); Platelet Count 369 T/CUMM (130-400); Red Blood Count 3.88 MC/CUMM (3.8-5.5); Red Cell Distribution Width 14.8 % (9.3-17.3); White Blood Count 15.7 T/CUMM (4-12)
[2019-11-25 06:23] LABS: Calcium 7.6 MG/DL (8.5-10.1); Osmolality,Calculated 323.2 MOS/KG (273-304)
[2019-11-25 06:31] LABS: Anisocytosis 2+; Lymphocytes 7 % (20-55); Platelet Estimate Normal; Segmented Neutrophils 91 % (50-85); Total Cells Counted 100
[2019-11-25 06:32] LABS: Macrocytosis 1+; Microcytosis 1+
[2019-11-25] MEDS: CLINDAMYCIN INJ 600 MG in PREMIX 1 EACH IV SCH (06:45)
[2019-11-25] MEDS: INSULIN LISPRO 100 UNIT/ML SUBCUT SCH (06:46)
[2019-11-25 08:52] LABS: ABG Base Excess -12.1 MMOL/L (-2.5-2.5); ABG Oxygen Saturation 94.5 % (95-100); ABG PCO2 42.6 MM HG (35-48); ABG PO2 87.1 MM HG (80-95); ABG TCO2 14.8 MMOL/L (23-27); Allen Test Positive; Pt O2 Delivery Device Ventilator
[2019-11-25 08:53] LABS: ABG PH 7.183 (7.35-7.45)
[2019-11-25] MEDS ORDERED: DESITIN 4OZ/NYSTATIN 15 GRAM MIXTURE PASTE TOP SCH (09:00)
[2019-11-25] MEDS ORDERED: INSULIN GLARGINE 100 UNIT/ML SUBCUT SCH (09:00)
[2019-11-25] MEDS: NOREPINEPHRINE 8 MG in SODIUM CHLORIDE 0.9% 242 ML IV PRN (09:55)
[2019-11-25] MEDS: OMEPRAZOLE ODT 20 MG TABLET NG SCH (10:05)
[2019-11-25] MEDS: ASPIRIN CHEW 81 MG TABLET PO SCH (10:05)
[2019-11-25] MEDS: ENOXAPARIN 30 MG/0.3 ML SYRINGE SUBCUT SCH (10:05)
[2019-11-25] MEDS: methylPREDNISolone SOD SUC 40 MG/1 ML VIAL IV SCH (10:59)
[2019-11-25] MEDS ORDERED: PHENYLEPHRINE DRIP 40 MG/250 ML PREMIX IV PRN (11:07)
[2019-11-25] MEDS ORDERED: METOPROLOL TARTRATE 5 MG/5 ML VIAL IV ONE (11:07)
== END 2019-11-25 11:30 | disposition expired | DRG 207 ==
LOC: N.ED 19:45 → N.EDINP 21:06 → N.ICU 22:03 → N.CC 11-15 21:55 → N.ICU 11-15 22:31 → N.CC 11-16 00:16
PROVIDERS: ADMIT Internal Medicine; ATTEND Internal Medicine